=== PATIENT | female | born 1975 | race African-American/Black ===

== ENCOUNTER 2019-08-26 04:55 | Emergency (ER) | payer BC ==
[~2019-08-26] VITALS: Ht 165.1 cm; Wt 77.1 kg
[2019-08-26 05:00] VITALS: BP 135/97
--- NOTE | 2019-08-26 05:26 | PHYS DOC ---
Adult General Chief Complaint Chief Complaint: UPPER EXTREMITY PAIN HPI HPI 41-year-old female presents to the emergency Department complaints of right upper extremity pain, history of rotator cuff injury in March and was seen in [facility] at that time with pain meds/muscle relaxers. Patient presents tonight with 2 week history of RUE muscle spasm, worse tonight. No particular injury. It sounds as if in march instead of a rotator cuff injury, she actually was experiencing cervical radiculopathy. The pain and discomfort started after being manipulated in a massage chair. She denies numbness and tingling on exam. She has equal strength appreciated to her upper extremities as well as normal ROM. Patient denies nausea, vomiting, chest pain, sob on exam Review of Systems Review of Systems Constitutional: Denies fever or chills [] Respiratory: Denies cough or shortness of breath [] Cardiovascular: No additional information not addressed in HPI [] GI: Denies abdominal pain, nausea, vomiting, bloody stools or diarrhea [] : Denies dysuria or hematuria [] Musculoskeletal: right upper extremity pain and spasm Integument: Denies rash or skin lesions [] Neurologic: Denies headache, focal weakness or sensory changes [] All other systems were reviewed and found to be within normal limits, except as documented in this note. Physical Exam Physical Exam Constitutional: Well developed, well nourished, mild distress 2/2 pain/spasm, non-toxic appearance. [] HENT: Normocephalic, atraumatic, bilateral external ears normal, oropharynx moist, no oral exudates, nose normal. [] Eyes: PERRLA, EOMI, conjunctiva normal, no discharge. [] Neck: Normal range of motion, no tenderness, supple, no stridor. [] Cardiovascular:Heart rate regular rhythm, no murmur [] Lungs & Thorax: Bilateral breath sounds clear to auscultation [] Abdomen: Bowel sounds normal, soft, no tenderness, no masses, no pulsatile masses. [] Skin: Warm, dry, no erythema, no rash. [] Back: No tenderness, no CVA tenderness. [] Extremities: No tenderness, no edema. normal ROM, no pain with ROM of the shoulder [] Neurologic: Alert and oriented X 3, no focal deficits noted. [] Psychologic: Affect normal, judgement normal, mood normal. [] EKG EKG [] Radiology/Procedures Radiology/Procedures [] Course & Med Decision Making Course & Med Decision Making Pertinent Labs and Imaging studies reviewed. (See chart for details) []41-year-old female presents to the emergency Department complaints of right upper extremity pain, history of rotator cuff injury in March and was seen in [facility] at that time with pain meds/muscle relaxers. Patient presents tonight with 2 week history of RUE muscle spasm, worse tonight. No particular injury. It sounds as if in march instead of a rotator cuff injury, she actually was expe riencing cervical radiculopathy. The pain and discomfort started after being manipulated in a massage chair. She denies numbness and tingling on exam. She has equal strength appreciated to her upper extremities as well as normal ROM. Patient denies nausea, vomiting, chest pain, sob on exam Dragon Disclaimer Dragon Disclaimer This electronic medical record was generated, in whole or in part, using a voice recognition dictation system. Departure Departure Impression: Primary Impression: Cervical radicular pain Disposition: 01 HOME, SELF-CARE Condition: STABLE Referrals: ASHLEY RAO MD (PCP) Patient Instructions: Cervical Radiculopathy, [id number] Additional Instructions: Recommend follow up with PCP 3 - 5 days Return to the ER with worsening symptoms, intractable pain, fever, altered mental status Tylenol/Motrin as needed for pain Recommend following up with PCP - an MRI would be helpful to help evaluate n erves and tissue that is not able to be seen on plain films Continue current medications at this time as prescribed DARÍO DE LEÓN MD Aug 26, 2019 05:26
== END 2019-08-26 05:30 | disposition home or self-care (01) ==
LOC: ER 04:55
DX: M54.12 Radiculopathy, cervical region (principal); M79.622 Pain in left upper arm
CPT/HCPCS: 99281